=== PATIENT | female | born 1965 | race African-American/Black ===

== ENCOUNTER 2022-10-25 19:47 | Emergency (ER) | payer MEDICARE, OTHER ==
[2022-10-25] MEDS ORDERED: Ketorolac Tromethamine 30 MG/ML VIAL ONE (21:32)
== END 2022-10-25 21:50 | disposition home or self-care (01) ==
LOC: CSHERS 19:47
DX: S50.12XA Contusion of left forearm, initial encounter (principal); E11.9 Type 2 diabetes mellitus without complications; I10 Essential (primary) hypertension; F44.9 Dissociative and conversion disorder, unspecified; W19.XXXA Unspecified fall, initial encounter
CPT/HCPCS: 96372; J1885